=== PATIENT | female | born 1970 | race Caucasian/White ===

== ENCOUNTER 2017-03-17 05:56 | Observation (INO) | payer BC ==
[2017-03-17] VITALS (9 sets, daily range): BP systolic 96–138; BP diastolic 52–72
[~2017-03-17] VITALS: Ht 165.1 cm; Wt 74.8 kg
[~2017-03-17 05:56] MED LIST: ACET325T9 PO; MULT-208 PO
[2017-03-17] MEDS ORDERED: 0.9 % SODIUM CHLORIDE 50 ML VIAL. IJ ONE (06:05)
[2017-03-17] MEDS ORDERED: BUPIVACAINE-EPI 0.5%-1:200000 50 ML VIAL. ONE (06:10)
[2017-03-17] MEDS ORDERED: BUPIVACAINE-EPI 0.25%-1:200000 MPF 30 ML VIAL. ONE (06:11)
[2017-03-17] MEDS ORDERED: ESTROGENS, CONJ VAGINAL CREAM 30GM TUBE. ONE (06:12)
[2017-03-17] MEDS ORDERED: DEXAMETHASONE SOD PHOS 20 MG/5 ML VIAL. ONE (06:47)
[2017-03-17] MEDS ORDERED: LIDOCAINE 2% PF Vial for OR 5 ML VIAL. ONE ×2 (06:47→09:37)
[2017-03-17] MEDS ORDERED: ONDANSETRON PF 4 MG/2 ML VIAL. ONE (06:47)
[2017-03-17] MEDS ORDERED: PROPOFOL 20 ML IV ONE (06:47)
[2017-03-17] MEDS ORDERED: fentaNYL PF VIAL 100 MCG/2 ML VIAL ONE (06:48)
[2017-03-17] MEDS ORDERED: ROCURONIUM 100 MG/10 ML VIAL. ONE (06:49)
[2017-03-17] MEDS ORDERED: IV RINGERS,LACTATED 1000ML 1,000 ML IV SCH (07:00)
[2017-03-17] MEDS ORDERED: HYDROmorphone 2 MG/ML VIAL IV PRN (07:00)
[2017-03-17] MEDS ORDERED: LIDOCAINE 1% PF 2 ML VIAL. ID PRN (07:00)
[2017-03-17] MEDS ORDERED: MORPHINE SULFATE 4 MG/ML DISP.SYRIN. IV PRN ×2 (07:00→10:00)
[2017-03-17] MEDS ORDERED: PROCHLORPERAZINE 10 MG/2 ML VIAL. IV PRN (07:00)
[2017-03-17] MEDS ORDERED: fentaNYL PF VIAL 100 MCG/2 ML VIAL IV PRN ×2 (07:00)
[2017-03-17] MEDS ORDERED: ONDANSETRON PF 4 MG/2 ML VIAL. IV PRN ×2 (07:00→10:00)
[2017-03-17 07:03] LABS: BILIRUBIN,URINE NEGATIVE (NEG); GLUCOSE,URINE NEGATIVE (NEG); NITRITE,URINE NEGATIVE (NEG); PH,URINE 5.5; PROTEIN,URINE NEGATIVE (NEG-TRACE); UROBILINOGEN,URINE 0.2 mg/dL (0.2 mg/dL)
[2017-03-17 07:12] LABS: BASO % 1 % (0-3); EOS % 2 % (0-3); HEMATOCRIT 35.6 % (36.0-47.0); LYMPH % 36 % (24-48); MEAN CORPUSCULAR HEMOGLOBIN 31 pg (25-35); MEAN CORPUSCULAR HGB CONC 34 g/dL (31-37); MEAN CORPUSCULAR VOLUME 91 fL (79-100); MONO % 10 % (0-9); NEUT % 52 % (31-73); PLATELET COUNT 258 x10^3/uL (140-400); RED BLOOD COUNT 3.92 x10^6/uL (3.50-5.40); RED CELL DISTRIBUTION WIDTH 13.7 % (11.5-14.5); WHITE BLOOD COUNT 5.4 x10^3/uL (4.0-11.0)
[2017-03-17] MEDS ORDERED: MIDAZOLAM HCL/PF 2 MG/2 ML VIAL. ONE (07:21)
[2017-03-17 07:22] LABS: BACTERIA,URINE 0 /HPF (0-FEW); RBC,URINE 0 /HPF (0-2); SQUAMOUS EPITHELIAL CELL,UR FEW /LPF; WBC,URINE 0 /HPF (0-4)
[2017-03-17] MEDS ORDERED: SEVOFLURANE 61 TO 120 MINUTES. IH ONE (08:28)
--- NOTE | 2017-03-17 09:54 | PDOC ---
BRIEF OPERATIVE NOTE Date: Mar 17, 2017 Pre-Op Diagnosis pelvic organ prolapse, 3 degree cystocele, 2 degree rectocele, GSUI Post-Op Diagnosis same Procedure Performed anterior repair, TVT abbrevo with cystoscopy, posterior repair with perineoplasty Surgeon Dr. Kathrine Ramos Anesthesiologist Dr. Rodriguez Anesthesia Type: General Blood Loss 100cc IV Fluid see anesthesia notes Urine Output 1000cc clear via dorman prior to cysto Specimens Obtained anterior and posterior vaginal mucosa--not sent Findings see above Complications none OPerative Note [id number] KATHRINE RAMOS MD Mar 17, 2017 09:54
[2017-03-17] MEDS ORDERED: NALOXONE 0.4 MG/ML VIAL. IV PRN (10:00)
[2017-03-17] MEDS ORDERED: SIMETHICONE 80 MG TAB.CHEW PO PRN (10:00)
[2017-03-17] MEDS ORDERED: MAG HYDROX/ALUMINUM HYD/SIMETH 30 ML ORAL.SUSP PO PRN (10:00)
[2017-03-17] MEDS ORDERED: CALCIUM CARBONATE 500 MG TAB.CHEW PO PRN (10:00)
[2017-03-17] MEDS ORDERED: diphenhydrAMINE HCL 25 MG CAPSULE PO PRN (10:00)
[2017-03-17] MEDS ORDERED: 0.9 % SODIUM CHLORIDE 10 ML DISP.SYRIN. IV PRN (10:00)
[2017-03-17] MEDS ORDERED: LACTULOSE 20 GM/30 ML SOLUTION. PO PRN (10:00)
[2017-03-17] MEDS ORDERED: MAGNESIUM HYDROXIDE 2,400 MG/30 ML ORAL.SUSP. PO PRN (10:00)
[2017-03-17] MEDS ORDERED: HYDROcodone/APAP 5/325MG 1 TAB TABLET PO PRN (10:00)
[2017-03-17] MEDS ORDERED: ZOLPIDEM 5 MG TABLET. PO PRN (10:00)
[2017-03-17] MEDS ORDERED: diphenhydrAMINE 50 MG/ML VIAL IV PRN (10:00)
[2017-03-17] MEDS: oxyCODONE/APAP 5/325 1 TAB TABLET PO PRN ×3 (11:20→20:25)
--- NOTE | 2017-03-17 11:23 | CONS ---
DATE OF CONSULTATION: 03/17/2017 PREOPERATIVE DIAGNOSES: Pelvic organ prolapse symptomatic with a third-degree cystocele, second degree rectocele, genuine stress urinary incontinence with urethral hypermobility. POSTOPERATIVE DIAGNOSES: Pelvic organ prolapse symptomatic with a third-degree cystocele, second degree rectocele, genuine stress urinary incontinence with urethral hypermobility. PROCEDURE: Anterior colporrhaphy, posterior colporrhaphy, posterior repair with perineoplasty, transvaginal taping, TVT Abbrevo with cystoscopy. SURGEON: Deena Ramos MD MORGUE ATTENDANT: OR personnel. ANESTHESIOLOGIST: Kvng Rodriguez MD ANESTHESIA: General. ESTIMATED BLOOD LOSS: 100 mL. IV FLUIDS: Please see anesthesia note. URINE OUTPUT: 1000 mL clear via Odonnell catheter and that was prior to doing the cystoscopy. SPECIMEN OBTAINED: Just anterior and posterior fragments of the vaginal mucosa that was trimmed, but not sent. FINDINGS: The third degree, second degree rectocele and prior urodynamics proving genuine stress urinary incontinence. COMPLICATIONS: None. DESCRIPTION OF PROCEDURE: This patient was taken to the operating room where general anesthesia was placed. The patient was placed in the dorsal lithotomy position in [facility]. The patient's vagina was prepped and draped in the normal sterile fashion and a Odonnell catheter was inserted under sterile technique. At this point, a weighted speculum was placed in the patient's vagina. Jeremy's were placed on the vaginal cuff and a dilute solution of 3 parts of injectable saline to 1 part local was used to inject the anterior bladder mucosa, suburethral area and posterior vaginal mucosa. A total of 130 mL of a dilute solution was used for the entire repair of that dilute solution. Once the anterior part was injected, a small vertical incision was made with the scalpel. Allis clamps were placed on either side of it and Metzenbaum scissors were used to gently open up the anterior defect. Once this was done, using the Metzenbaum scissors sharply to cut away the defect from the edges and then an open Ray-Carmen 4 x 4 to gently push it down. The defect was reduced from the anterior vaginal mucosa. Once this was done in a series of probably 6 or 7, interrupted 2-0 Vicryl sutures were placed and tagged and then went back and tied them in order gently reducing that defect and pulling the mucosa back together. The excess vaginal mucosa on both sides was trimmed with the Metzenbaum scissors and a full length 2-0 Vicryl was used to close this defect in a running locked fashion. There was a 2 cm area above this that was left beneath the urethra with rugae. This was on purpose to place the sling through a separate opening. So at this point, an Allis was placed under the urethra and part of that 130, but more of that dilute solution was then used in the suburethral area, but I accounted that in the 130 total that I mentioned earlier was placed here and taken out laterally to the obturator foramens, obviously first putting it in and withdrawing to make sure we were in the vascular area and then injecting, then making a 1 cm vertical incision under the urethra, placing Allis clamps on either side and using the Metzenbaum scissors to dissect out laterally on both sides to the obturator foramen. Once this was done, a marking pen was used to christos the urethral area 2 cm up and then 2 cm out from the groin folds to the expected sling location in the lateral groin. So at this point, the wing guide applicator was placed on the patient's right side. The sling was taken through and it came out very close to that expected christos. A small incision was made in the skin and the sling was popped through. The wing guide applicator was removed. There was a curved Suzan placed over the white sheath of the sling and the sling was removed from the handle and it was pulled through gently. Then this was done exactly the same on the left side. The wing guide applicator was placed through the tract that was created and the sling was made sure to be straight and it was taken through the left side and it came out right at the exact location as expected. A boo was made in the skin. The sling popped through. The wing guide applicator was then removed. A curved Suzan was placed over the white sheath again of the sling and the sling was removed from the handle below. There was no buttonholing. The vaginal mucosa looked good. It was not pulled tight at this point. The Odonnell was deflated, the bulb was deflated and the catheter was removed and a cystoscopy was performed at this time. A 500-600 mL of solution was used. There was no trauma to the bladder at all. There were no lesions, no blood. The bladder bubble was seen. Both ureters were seen clear only. Taking it around the sides, there was no tape or trauma to the bladder. So at this point it was ended. Some of the fluid was drained, some was left in. A small dilator was placed over the sling, 5/6 and the sling was pulled taut over that with the Prolene suture right in the middle over the dilator like it should be in the mid urethral area. The plastic ends were cut off the sheaths of the sling and the curved Kellys were placed back over the plastic sheaths. Once these were taut and the sling was in place over the dilator, the plastic sheaths were pulled off, the Prolene sutures were removed as well. The plastic Prolene suture was clipped in the middle and then dilator was removed. FloSeal was placed over the sling with excellent results. A 2-layer closure was done first with a Monocryl in subcutaneous and then 2-0 Vicryl over the top. Once this was done, all the anterior stuff as done. There was some slight oozing from part of the anterior repair in the middle of that running stitch. So an interrupted suture was placed here with excellent results. At this point, a weighted speculum was removed and then now the posterior part was injected. Again this was part of that 130 mL total of that dilute solution of 3 parts of injectable saline to 1 part local and it was injected in the perineal body and the posterior defect. Once this was done, the scalpel was used to make a wedge-shaped resection or evangelina shaped, first going in the vagina and then down the perineal body and removing it. Then the Metzenbaum scissors were used to open up the posterior defect as well, placing Allis along the way. This was taken up to within a centimeter of the cuff line. Once this was done, again sharply with the Metzenbaum scissors to get the edge off and then bluntly with the Ray-Carmen, the posterior defect was removed from the posterior vaginal mucosa. Once this was done, it reduced very well, probably 6 or 7 interrupted 2-0 Vicryl stitches were placed from the cuff back to the introitus in order and then tagged and then went back and tied them, reducing the defect along the way. Once this was done, it reduced wonderful. The posterior vaginal mucosa was also trimmed with the Metzenbaum scissors. There was some bleeding on just the vaginal mucosa. Cautery was used here with excellent results and it was closed with a full length 2-0 Vicryl in a running locked fashion to the introitus and deep sutures were placed on the perineal body reapproximating it and then subcuticular stitches were placed going up once I got to the apex up the perineal body reapproximating and pulling together the perineal body and then back under the hymenal ring into the vagina to anchor stitch like an episiotomy repair. Once this was done, a sponge stick was used to examine everything and it was dry. A small amount of Premarin with vaginal packing was placed in the patient's vagina. The patient tolerated the procedure well. All sponge, lap and needle counts were correct x 2 by OR personnel and the patient was awakened from anesthesia and taken to recovery room in stable condition. DEENA RAMOS MD DR: MAX/deepika JOB#: [id number] / [id number]
[2017-03-18 00:20] VITALS: BP 103/63
[2017-03-18 06:50] VITALS: BP 120/75
--- NOTE | 2017-03-18 07:46 | PDOC ---
SURGICAL PROGRESS NOTE Subjective Doing well without complaints. Scant vaginal bleeding. voiding well without the catheter. Pain well controlled with oral percocet Vital Signs Vital Signs Date Time Temp Pulse Resp B/P (MAP) Pulse Ox O2 Delivery O2 Flow Rate FiO2 03/18/17 06:50 98.2 57 120/75 (90) 97 Room Air 98.2 03/18/17 00:20 14 03/17/17 10:03 10 PATIENT HAS A ZARAGOZA: No General: Alert, Oriented X3, Cooperative, No acute distress HEENT: Atraumatic Heart: Regular rate Abdomen: Soft, No tenderness Extremities: No clubbing, No cyanosis, No edema, No tenderness/swelling Skin: No rashes, No breakdown Neuro: Normal speech Psych/Mental Status: Mental status NL, Mood NL Labs Laboratory Tests Test 03/17/17 06:45 03/18/17 05:00 White Blood Count 5.4 x10^3/uL (4.0-11.0) Red Blood Count 3.92 x10^6/uL (3.50-5.40) Hemoglobin 12.0 g/dL (12.0-15.5) Hematocrit 35.6 % (36.0-47.0) 33.8 % (36.0-47.0) Mean Corpuscular Volume 91 fL (79-100) Mean Corpuscular Hemoglobin 31 pg (25-35) Mean Corpuscular Hemoglobin Concent 34 g/dL (31-37) Red Cell Distribution Width 13.7 % (11.5-14.5) Platelet Count 258 x10^3/uL (140-400) Neutrophils (%) (Auto) 52 % (31-73) Lymphocytes (%) (Auto) 36 % (24-48) Monocytes (%) (Auto) 10 % (0-9) Eosinophils (%) (Auto) 2 % (0-3) Basophils (%) (Auto) 1 % (0-3) Neutrophils # (Auto) 2.8 x10^3uL (1.8-7.7) Lymphocytes # (Auto) 2.0 x10^3/uL (1.0-4.8) Monocytes # (Auto) 0.5 x10^3/uL (0.0-1.1) Eosinophils # (Auto) 0.1 x10^3/uL (0.0-0.7) Basophils # (Auto) 0.0 x10^3/uL (0.0-0.2) Urine Collection Type Unknown Urine Color Yellow Urine Clarity Clear Urine pH 5.5 Urine Specific [place] 1.020 Urine Protein Negative mg/dL (NEG-TRACE) Urine Glucose (UA) Negative mg/dL (NEG) Urine Ketones (Stick) Negative mg/dL (NEG) Urine Blood Trace (NEG) Urine Nitrite Negative (NEG) Urine Bilirubin Negative (NEG) Urine Urobilinogen Dipstick 0.2 mg/dL (0.2 mg/dL) Urine Leukocyte Esterase Negative (NEG) Urine RBC 0 /HPF (0-2) Urine WBC 0 /HPF (0-4) Urine Squamous Epithelial Cells Few /LPF Urine Bacteria 0 /HPF (0-FEW) Urine Mucus Marked /LPF Laboratory Tests Test 03/18/17 05:00 Hematocrit 33.8 % (36.0-47.0) I have reviewed the following labs, vitals, nursing Cardiovascular: No pertinent hx Pulmonary: No pertinent hx GI: No pertinent hx Heme/Onc: No pertinent hx Psych: No pertinent hx Rheumatologic: No pertinent hx Infectious disease: No pertinent hx Endocrine: No pertinent hx Assessment/Plan POD#1 s/p anterior and posterior repair with perineoplasty and TVT abbrevo with cystoscopy Routine PO care d/c to home later today Percocet--written ok for OTC ibuprofen call or return sooner for any other questions or concerns not limited to but including pain unrelieved with pain pills, increased or unexplained vaginal bleeding or T>100.4 keep scheduled follow up with me in the office Problems: DEENA RAMOS MD Mar 18, 2017 07:46
--- NOTE | 2017-03-18 07:54 | PDOC3 ---
Discharge Summary Visit Information Date of Admission: Mar 17, 2017 Date of Discharge: Mar 18, 2017 Final Diagnosis Pelvic organ prolapse and stress incontinence Brief Hospital Course Allergies Allergies Coded Allergies Type Severity Reaction Last Updated Verified No Known Drug Allergies 03/17/17 No Vital Signs Vital Signs Date Time Temp Pulse Resp B/P (MAP) Pulse Ox O2 Delivery O2 Flow Rate FiO2 03/18/17 06:50 98.2 57 120/75 (90) 97 Room Air 98.2 03/18/17 00:20 14 03/17/17 10:03 10 Lab Results Laboratory Tests Test 03/17/17 06:45 03/18/17 05:00 White Blood Count 5.4 x10^3/uL (4.0-11.0) Red Blood Count 3.92 x10^6/uL (3.50-5.40) Hemoglobin 12.0 g/dL (12.0-15.5) Hematocrit 35.6 % (36.0-47.0) 33.8 % (36.0-47.0) Mean Corpuscular Volume 91 fL (79-100) Mean Corpuscular Hemoglobin 31 pg (25-35) Mean Corpuscular Hemoglobin Concent 34 g/dL (31-37) Red Cell Distribution Width 13.7 % (11.5-14.5) Platelet Count 258 x10^3/uL (140-400) Neutrophils (%) (Auto) 52 % (31-73) Lymphocytes (%) (Auto) 36 % (24-48) Monocytes (%) (Auto) 10 % (0-9) Eosinophils (%) (Auto) 2 % (0-3) Basophils (%) (Auto) 1 % (0-3) Neutrophils # (Auto) 2.8 x10^3uL (1.8-7.7) Lymphocytes # (Auto) 2.0 x10^3/uL (1.0-4.8) Monocytes # (Auto) 0.5 x10^3/uL (0.0-1.1) Eosinophils # (Auto) 0.1 x10^3/uL (0.0-0.7) Basophils # (Auto) 0.0 x10^3/uL (0.0-0.2) Urine Collection Type Unknown Urine Color Yellow Urine Clarity Clear Urine pH 5.5 Urine Specific [place] 1.020 Urine Protein Negative mg/dL (NEG-TRACE) Urine Glucose (UA) Negative mg/dL (NEG) Urine Ketones (Stick) Negative mg/dL (NEG) Urine Blood Trace (NEG) Urine Nitrite Negative (NEG) Urine Bilirubin Negative (NEG) Urine Urobilinogen Dipstick 0.2 mg/dL (0.2 mg/dL) Urine Leukocyte Esterase Negative (NEG) Urine RBC 0 /HPF (0-2) Urine WBC 0 /HPF (0-4) Urine Squamous Epithelial Cells Few /LPF Urine Bacteria 0 /HPF (0-FEW) Urine Mucus Marked /LPF Laboratory Tests Test 03/18/17 05:00 Hematocrit 33.8 % (36.0-47.0) Brief Hospital Course Ms. Ruiz is a 47 old female who presented with symptomatic pelvic organ prolapse and genuine urinary stress incontinence. She underwent an anterior repair, TVT abbrevo with cystoscopy and posterior repair with perineoplasty without complications. She is doing well this morning and hgb is good, voiding well, tolerating regular diet. she will be discharged home today Discharge Information Condition at Discharge: Improved Follow Up: Weeks Disposition/Orders: D/C to Home Scheduled Acetaminophen (Tylenol), 1-2 TAB PO QID, (Reported) Discontinued Medications Multivitamin (Multi-Day Vitamins), 1 TAB PO DAILY, (Reported) Patient Instructions Patient Instructions POD#1 s/p anterior and posterior repair with perineoplasty and TVT abbrevo with cystoscopy Routine PO care d/c to home later today Percocet--written ok for OTC ibuprofen call or return sooner for any other questions or concerns not limited to but including pain unrelieved with pain pills, increased or unexplained vaginal bleeding or T>100.4 keep scheduled follow up with me in the office DEENA RAMOS MD Mar 18, 2017 07:54
[2017-03-18] MEDS ORDERED: diphenhydrAMINE HCL 25 MG CAPSULE PO PRN (08:00)
[2017-03-18] MEDS ORDERED: METOCLOPRAMIDE HCL 10 MG/2 ML VIAL. IV PRN (08:00)
[2017-03-18] MEDS ORDERED: MAG HYDROX/ALUMINUM HYD/SIMETH 30 ML ORAL.SUSP PO PRN (08:00)
[2017-03-18] MEDS ORDERED: CALCIUM CARBONATE 500 MG TAB.CHEW PO PRN (08:00)
[2017-03-18] MEDS ORDERED: LACTULOSE 20 GM/30 ML SOLUTION. PO PRN (08:00)
[2017-03-18] MEDS ORDERED: ONDANSETRON PF 4 MG/2 ML VIAL. IV PRN (08:00)
[2017-03-18] MEDS ORDERED: diphenhydrAMINE 50 MG/ML VIAL IV PRN (08:00)
[2017-03-18] MEDS ORDERED: 0.9 % SODIUM CHLORIDE 10 ML DISP.SYRIN. IV PRN (08:00)
[2017-03-18] MEDS ORDERED: HYDROcodone/APAP 5/325MG 1 TAB TABLET PO PRN (08:00)
[2017-03-18] MEDS ORDERED: ZOLPIDEM 5 MG TABLET. PO PRN (08:00)
[2017-03-18] MEDS ORDERED: MAGNESIUM HYDROXIDE 2,400 MG/30 ML ORAL.SUSP. PO PRN (08:00)
[2017-03-18] MEDS ORDERED: SIMETHICONE 80 MG TAB.CHEW PO PRN (08:00)
[2017-03-18] MEDS ORDERED: NALOXONE 0.4 MG/ML VIAL. IV PRN (08:00)
[2017-03-18] MEDS ORDERED: MORPHINE SULFATE 4 MG/ML DISP.SYRIN. IV PRN (08:00)
[2017-03-18] MEDS ORDERED: oxyCODONE/APAP 5/325 1 TAB TABLET PO PRN (08:00)
[2017-03-18 10:00] VITALS: BP 108/71
== END 2017-03-18 10:00 | disposition home or self-care (01) ==
LOC: SURG 05:56 → 3 NORTH 09:58
PROVIDERS: ADMIT Obstetrics & Gynecology; ATTEND Obstetrics & Gynecology
DX: N81.9 Female genital prolapse, unspecified (principal); N81.10 Cystocele, unspecified; N81.6 Rectocele; N39.3 Stress incontinence (female) (male); N36.41 Hypermobility of urethra
CPT/HCPCS: 36415; 56810; 57260; 57288; 81001; 85014; 85025; C1771; G0378; G0379; J0690; J1100; J2250; J2405; J2704; J3010; J7120; J2001